=== PATIENT | female | born 1945 | race Caucasian/White ===

== ENCOUNTER → 2017-08-09 | Outpatient (CLI) | payer OTHER, MEDICARE ==
[~2017-08-09] MED LIST: ACCUPRIL10 MG PO; Antivert PO; Aspirin Chewable PO; FISH OIL 1,0001 EAC7 PO; FORTAMET1000 M1 PO; GLIMEPIRIDE4 MG PO; LEVOTHROID150 MCG PO; Lipitor PO; NAPROSYN250 MG PO; VITAMIN D2000 UNI1 PO
== END | disposition home or self-care (01) ==
LOC: AMB 08-08 10:30
PROC: 0HB4XZZ Excision of Neck Skin, External Approach (ICD-10-PCS; principal; 2017-08-09)
DX: L72.0 Epidermal cyst (principal); I10 Essential (primary) hypertension; E11.65 Type 2 diabetes mellitus with hyperglycemia; E78.00 Pure hypercholesterolemia, unspecified; E03.9 Hypothyroidism, unspecified; E66.9 Obesity, unspecified; Z68.33 Body mass index [BMI] 33.0-33.9, adult; Z79.84 Long term (current) use of oral hypoglycemic drugs; Z79.82 Long term (current) use of aspirin; Z88.0 Allergy status to penicillin; Z88.5 Allergy status to narcotic agent; Z88.8 Allergy status to other drugs, medicaments and biological substances
CPT/HCPCS: 88304